=== PATIENT | female | born 1950 | race Caucasian/White ===

== ENCOUNTER → 2019-06-02 08:46 | Outpatient (CLI) | payer MEDICARE, SELFPAY ==
--- NOTE | ~2019-06-02 | MR_ITS ---
EXAMINATION: MR lumbar spine wo/w con DATE: 06/02/2019 09:57 INDICATION: Low back pain. TECHNIQUE: Magnetic resonance imaging (MRI) of the lumbar spine was performed without and with 13 mL MultiHance intravenous contrast. Sequences included sagittal T2-weighted FSE, sagittal T2-weighted FS FSE, and sagittal and axial T1-weighted FSE. Postcontrast sequences included axial T2-weighted FSE a nd axial and sagittal T1-weighted FS FSE. COMPARISON: Lumbar spine MRI 12/27/2005 FINDINGS: There is 15 degrees levoscoliosis of thoracolumbar spine. There is mild chronic anterior we dging of T11 vertebral body. There is mildly decreased disc height at L1-L2, severely decreased disc height at L2-L3, mildly decreased disc height at L3-L4, and severely decreased disc height at L4-L5. The distal spinal cord signal intensity is normal. The conus medullaris is at L1. There are cysts in the kidneys measuring up to 2.0 cm on the left. The following disc levels are specifically discussed: L1-L2: The disc is bulging and has an annular fissure. There is mild right and moderate left facet natalio int osteoarthritis. There is mild bilateral neural foraminal stenosis. There is mild central canal st enosis. L2-L3: The disc is bulging and has an annular fissure. There is severe bilateral facet joint osteoart hritis. There is mild bilateral neural foraminal stenosis. There is mild central canal stenosis. L3-L4: The disc is bulging and has an annular fissure. There is severe bilateral facet joint osteoart hritis. There is mild bilateral neural foraminal stenosis. There is mild central canal stenosis. L4-L5: The disc is bulging and has an annular fissure. There is severe bilateral facet joint osteoart hritis. There is mild right and moderate left neural foraminal stenosis. There is mild central canal stenosis. L5-S1: The disc is mildly bulging. There is severe bilateral facet joint osteoarthritis. There is mil d bilateral neural foraminal stenosis. There is mild central canal stenosis. IMPRESSION: 1. Severe lumbar spondylosis, worsened from 12/27/2005. 2. Thoracolumbar levoscoliosis. Reviewed, dictated and finalized at location A. [employer]
[2019-06-02 09:33] LABS: Blood Urea Nitrogen 12 mg/dL (8-26); Estimated Glomerular Filt Rate > 60
== END ==
PROVIDERS: PCP Family Medicine; Visit Provider Physician Assistant
DX: R26.81 Unsteadiness on feet (principal); M47.26 Other spondylosis with radiculopathy, lumbar region
CPT/HCPCS: 72158; A9577